=== PATIENT | male | born 1980 | race Caucasian/White ===

== ENCOUNTER 2022-06-09 16:18 | Emergency (ER) | payer OTHER ==
[~2022-06-09] VITALS: Ht 188 cm; Wt 81.0 kg
[2022-06-09 17:16] VITALS: BP 126/71
[2022-06-09 17:30] VITALS: BP 114/69
[2022-06-09] MEDS ORDERED: NAPROXEN500 MG PO (18:53)
[2022-06-09] MEDS ORDERED: LORTAB5 PO (18:53)
[2022-06-09 19:35] VITALS: BP 114/69
== END 2022-06-09 20:18 | disposition home or self-care (01) | DRG 552 ==
LOC: ED 16:18
DX: S16.1XXA Strain of muscle, fascia and tendon at neck level, initial encounter (principal); S39.012A Strain of muscle, fascia and tendon of lower back, initial encounter; F17.200 Nicotine dependence, unspecified, uncomplicated; V49.40XA Driver injured in collision with unspecified motor vehicles in traffic accident, initial encounter